=== PATIENT | female | born 1965 | race Caucasian/White ===

== ENCOUNTER 2025-05-05 09:39 | Emergency (ER) | payer SELFPAY ==
[2025-05-05 09:47] VITALS: BMI 25.9
--- NOTE | 2025-05-05 09:59 | ED.GENMED ---
History of Present Illness
<Edward Kidd MD, Resident - Last Filed: 05/05/25 13:24>
General
Chief Complaint: Back Pain
Source: patient
Time Seen by Provider: 05/05/25 09:56
History of Present Illness
History of Present Illness:
Patient is a 59-year-old female with PMH of HTN, diverticulitis, anxiety, and depression who presents to the [facility] ED via EMS for 2 days of mild back pain that acutely worsened this morning. Patient was woken from sleep 2 days ago by sudden
onset, 9/10 intensity back and substernal chest pain that radiates to the shoulders and arms bilaterally. Pain is worse with movement, improved with sitting/standing versus lying down, associated with shortness of breath. Over the past 2 days,
patient has taken Tylenol, naproxen, Aleve, gabapentin, and smoked marijuana for her pain, which provided mild relief. At the bedside, patient continues to have back pain, chest pain, shortness of breath. On transport with EMS, patient was given
aspirin and nitroglycerin, which did provide some relief for symptoms. No association with eating. No trauma. On Thursday night, patient tried a new neck stretch that she does not usually perform. No immediate issues after that stretch, but
patient wonders whether it could be related to her back pain. Denies palpitations, N/V/D, recent illnesses, cough, wheezing, dysuria, frequency, urgency, weakness, or numbness.
Past History
<Edward Kidd MD, Resident - Last Filed: 05/05/25 13:24>
Past History
ED Past Medical History: HTN and Other (Diverticulitis)
ED Past Surgical History: Appendectomy
Social History
Tobacco: Non-smoker
Alcohol: Daily (Wine 1-2 glasses)
Drug: Marijuana
Personal:
Living: with family
Review of Systems
<Edward Kidd MD, Resident - Last Filed: 05/05/25 13:24>
Review of Systems
Respiratory: Reports trouble breathing; Denies cough
Cardiac: Reports chest pain; Denies palpitations or syncope
ABD/GI: Reports abdominal pain; Denies nausea, vomiting or diarrhea
: Denies dysuria, frequency or urgency
Musculoskeletal: Reports back pain ('Between shoulder blades')
Neurological: Denies dizzy, weakness or numbness
Phy Exam
<Edward Kidd MD, Resident - Last Filed: 05/05/25 13:24>
Physical Exam
Physical Exam:
General: NAD. Conversant.
CV: RRR. No M/R/G. S1, S2 noted.
Pulm: CTAB. No wheezes or crackles.
GI: Soft, mild epigastric tenderness. Nondistended. No rigidity, guarding, or rebound tenderness.
MSK: Mild TTP of the paraspinal and spinal areas between the shoulder blades. Pain worse with movement.
Neuro: A&O x 3. Motor, or sensory intact. CN II through XII intact.
Course
<Edward Kidd MD, Resident - Last Filed: 05/05/25 13:24>
Orders/Labs/Results
Orders:
Orders
05/05/25 09:45
Electrocardiogram (*1) Urgent
Reason for Study: Chest Pain
EKG- Treatment ONCE
CXR2 [CR Chest - 2 Views ] Urgent
Comment:
Reason For Exam: chest pain
05/05/25 09:56
Complete Blood Count/With Diff Urgent
Comprehensive Metabolic Panel Urgent
Lipase Urgent
Troponin I Urgent
05/05/25 11:10
Add On- LAB Urgent
Tests Added?: lipase
US Abdomen Complete/Upper Urgent
Comment:
Reason For Exam: epigastric pain
05/05/25 11:11
HYDROmorphone [Dilaudid] 0.5 mg IV NOW STA
05/05/25 11:12
Lactated Ringers [Lr] 500 ml IV BOLUS
05/05/25 12:59
Dexamethasone Pf [Decadron] 10 mg PO NOW STA
Ketorolac [Toradol] 15 mg IV NOW STA
Abnormal Lab Results
05/05/25
09:56
WBC 14.1 H 10^3/uL
(4.8-10.8)
RBC 4.15 L 10^6/uL
(4.20-5.40)
Abs Immat Gran (auto) 0.1 H 10^3/uL
(0-0.05)
Absolute Neuts (auto) 11.9 H 10^3/uL
(1.4-6.5)
Absolute Lymphs (auto) 1.0 L 10^3/uL
(1.2-3.4)
Absolute Monos (auto) 0.9 H 10^3/uL
(0.1-0.6)
Neutrophils % 84.5 H %
(42.2-75.2)
Lymphocytes % 7.3 L %
(20.5-51.1)
Glucose 103 H mg/dl
(70-99)
AST 61 H U/L
(14-36)
ALT 38 H U/L
(0-35)
05/05/25 09:56
05/05/25 09:56
Vital Signs
Initial and Last Documented VS:
Initial Vital Signs
Temp Pulse Resp Pulse Ox
98.0 F 99 16 99
05/05/25 09:47 05/05/25 09:47 05/05/25 09:47 05/05/25 09:47
Last Documented Vital Signs
Temp Pulse Resp Pulse Ox
98.4 F 99 16 98
05/05/25 09:47 05/05/25 09:47 05/05/25 09:47 05/05/25 10:39
<Jakob Mitchell MD - Last Filed: 05/05/25 13:12>
Orders/Labs/Results
Orders:
Orders
05/05/25 09:45
Electrocardiogram (*1) Urgent
Reason for Study: Chest Pain
EKG- Treatment ONCE
CXR2 [CR Chest - 2 Views ] Urgent
Comment:
Reason For Exam: chest pain
05/05/25 09:56
Complete Blood Count/With Diff Urgent
Comprehensive Metabolic Panel Urgent
Lipase Urgent
Troponin I Urgent
05/05/25 11:10
Add On- LAB Urgent
Tests Added?: lipase
US Abdomen Complete/Upper Urgent
Comment:
Reason For Exam: epigastric pain
05/05/25 11:11
HYDROmorphone [Dilaudid] 0.5 mg IV NOW STA
05/05/25 11:12
Lactated Ringers [Lr] 500 ml IV BOLUS
05/05/25 12:59
Dexamethasone Pf [Decadron] 10 mg PO NOW STA
Ketorolac [Toradol] 15 mg IV NOW STA
Abnormal Lab Results
05/05/25
09:56
WBC 14.1 H 10^3/uL
(4.8-10.8)
RBC 4.15 L 10^6/uL
(4.20-5.40)
Abs Immat Gran (auto) 0.1 H 10^3/uL
(0-0.05)
Absolute Neuts (auto) 11.9 H 10^3/uL
(1.4-6.5)
Absolute Lymphs (auto) 1.0 L 10^3/uL
(1.2-3.4)
Absolute Monos (auto) 0.9 H 10^3/uL
(0.1-0.6)
Neutrophils % 84.5 H %
(42.2-75.2)
Lymphocytes % 7.3 L %
(20.5-51.1)
Glucose 103 H mg/dl
(70-99)
AST 61 H U/L
(14-36)
ALT 38 H U/L
(0-35)
05/05/25 09:56
05/05/25 09:56
Vital Signs
Initial and Last Documented VS:
Initial Vital Signs
Temp Pulse Resp Pulse Ox
98.0 F 99 16 99
05/05/25 09:47 05/05/25 09:47 05/05/25 09:47 05/05/25 09:47
Last Documented Vital Signs
Temp Pulse Resp Pulse Ox
98.4 F 99 16 98
05/05/25 09:47 05/05/25 09:47 05/05/25 09:47 05/05/25 10:39
<Edward Kidd MD, Resident - Last Filed: 05/05/25 13:24>
MDM/Problems Addressed
Differential Diagnosis Includes:
Muscle strain
Myocardial infarction
Aortic dissection
Pancreatitis
GI ulcer
Pericarditis
Pneumonia
Fracture
Pneumothorax
MDM/Problems Addressed:
Assessment: Patient is a 59-year-old female with PMH of HTN, diverticulitis, anxiety, and depression who presents to the [facility] ED with shortness of breath and sudden onset, 9/10 intensity, back and substernal chest pain that radiates to the
shoulder blades and arms and is worse with movement and upright positioning. Physical exam remarkable only for mild epigastric tenderness. AFVSS, EKG, CXR, abdominal ultrasound unremarkable. Labs remarkable for leukocytosis (14.1), neutrophilia,
left shift, and previously present mild transaminase elevations. Troponin, lipase unremarkable. Patient is feeling better with pain control. Suspect musculoskeletal etiology of back pain. Workup ongoing.
Plan:
#Back pain
EKG
Labs: CBC, CMP, lipase, troponin
Imaging: Abdominal ultrasound, CXR
Pain control with Dilaudid, Toradol
Decadron for muscle pain
<Edward Kidd MD, Resident - Last Filed: 05/05/25 13:24>
*Pulse Oximetry
SaO2: 98
Oxygen Mode of Delivery: Room air
Patient hypoxic: no
*Critical Care Note
Total Time (30-74mins, 75-104mins- exclusive of procedures): Not Applicable
ED Attending Note
<Edward Kidd MD, Resident - Last Filed: 05/05/25 13:24>
-
Portions of this chart may have been created with voice recognition software.� Occasional wrong word or��sound alike� substitutions may have occurred due to the inherent limitations of voice recognition software.
<Jakob Mitchell MD - Last Filed: 05/05/25 13:12>
ED Attending Note
Patient seen and examined by attending physician: Yes
ED Attending Note:
Patient presents to ED secondary to 3-day history of persistent upper back pain. Patient reports doing different type of stretching exercise, requiring extreme flexion of her neck, the night before she went to sleep. She woke up the following day,
earlier than usual, with aforementioned upper back pain, which has persisted. Denies chest pain. Denies shortness of breath. Denies nausea or vomiting. Denies dizziness. Denies diaphoresis. Pain worse with certain movements. Denies weakness
or numbness. Denies difficulty with ambulation. Denies direct trauma. Denies recent illness. Denies previous history of similar symptoms. Patient initially thought her pain was musculoskeletal in etiology, but when it persisted beyond 2 days,
along with chest pain, she thought that she should get herself checked out. Denies family history of early heart disease. Denies smoking or drinking alcohol. Denies recent travel or surgery. Denies of leg pain or swelling.
Physical Exam
General: mild painful distress, not acutely ill. afebrile
Head: nc/at. eomi
Neck: supple. no meningeal signs. no midline tenderness. mild left cervical tenderness at level of C-5-6, without deformity/swelling/ecchymosis
Heart: s1/s2 regular rate and rhythm
Lungs: no acute respiratory distress. clear bilaterally. mild upper anterior chest wall tenderness to palpation
Abdomen: normal bowel sounds. not tender. no distention
Neuro: alert and oriented x 3. no focal neurological deficits
Skin: no rash
Psychiatric: well kept. interactive and cooperative
Extremities: no edema. no calf tenderness.
Patient with an unremarkable workup in ED, including blood work and abdominal ultrasound. Mildly elevated AST/ALT noted, which appears to be chronic.
History and exam consistent with likely musculoskeletal pain with associated muscle spasm. Patient otherwise is afebrile, hemodynamically stable, and neurologically intact, at time of discharge, to the care of her friend. Advised Tylenol/Motrin
for pain relief, along with warm compress application, as well as PCP follow-up as an outpatient, including potential MRI of cervical spine, if symptoms persist. Return precautions provided to the patient, i.e. fever/worsening
pain/weakness/numbness. Patient expressed understanding at time of discharge.
Discharge Plan
Departure
Patient Disposition: Home (Routine Discharge)
Date of Disposition: 05/05/25
Time of Disposition: 13:10
Patient with high blood pressure during this ER visit?: No
Condition: Good
Covid-19: Not Applicable
Discharge Problem:
Musculoskeletal back pain
Instructions: Upper Back Pain (DC)
Prescriptions:
No Action
trazodone 50 MG tablet
50 mg PO HS
ibuprofen 800 MG tablet
800 mg PO Q6HPRN PRN (Reason: pain)
Vyvanse 40 MG capsule
40 mg PO DAILY
duloxetine 40 MG capsule,delayed release(DR/EC)
40 mg PO DAILY
dextroamphetamine-amphetamine [Adderall] 10 mg Tablet
10 mg PO DAILY@1600
losartan
1 tab PO HS
Referrals:
UNKNOWN - PT DOES,NOT KNOW [Family Provider]
Activity Restrictions/Additional Instructions:
Recommend follow-up with PCP for reevaluation of back pain, with possible consideration of MRI
Return to ED if worsening back pain, chest pain, shortness of breath or any other acute symptoms
Interventions
Interventions:
*Risk Screen - Suicide Last Done: 05/05/25 09:47
*General Assessment Last Done: 05/05/25 09:47
*Neglect/Abuse Screening Last Done: 05/05/25 10:15
*ED- Fall Risk Assessment Last Done: 05/05/25 09:47
*ED COVID-19 Vaccine History Last Done: 05/05/25 09:51
*ED Influenza Vaccine History Last Done: 05/05/25 09:51
ED-Musculoskeletal Assessment Last Done: 05/05/25 09:47
Discharge Date and Time
Print Language: GEORGIAN
[2025-05-05 10:12] LABS: Hematocrit 38.8 % (37.0-47.0); Hemoglobin 12.8 g/dL (12.0-16.0); Mean Corp Hgb Conc. 33.0 g/dL (33.0-37.0); Mean Corpuscular Volume 93.5 fL (81.0-99.0); Nucleated Red Blood Cells % 0 %; Platelet Count 194 10^3/uL (130-400); Red Cell Dist. Width 12.4 % (11.5-14.5)
[2025-05-05 10:25] LABS: ALT (SGPT) 38 U/L (0-35); AST (SGOT) 61 U/L (14-36); Albumin 3.8 g/dl (3.5-5.0); Alkaline Phosphatase 108 U/L (38-126); Blood Urea Nitrogen 11 mg/dl (7-17); Calcium 8.8 mg/dl (8.4-10.2); Carbon Dioxide 27 mmol/L (22-30); Chloride 103 mmol/L (98-107); Estimated Creatinine Clearance 75 ml/min; Glucose 103 mg/dl (70-99); Potassium 4.4 mmol/L (3.5-5.1); Sodium 135 mmol/L (135-145); Total Protein 6.4 g/dl (6.3-8.2); eGFR > 60.00
[2025-05-05 10:37] LABS: Troponin I < 0.012 ng/ml
[2025-05-05] MEDS: LR 500 IV (11:17)
[2025-05-05] MEDS: DILAUDID 0.5 MG IV (11:18)
[2025-05-05 12:11] LABS: Lipase 141 U/L (23-300)
[2025-05-05] MEDS: TORADOL 15 MG IV (13:19)
[2025-05-05] MEDS: DECADRON 10 MG PO (13:19)
== END 2025-05-05 13:34 | disposition home or self-care (01) ==
LOC: EMR 09:39
PROVIDERS: EMERGENCY PHYSICIAN Emergency Medicine
DX: M54.9 Dorsalgia, unspecified (principal); I10 Essential (primary) hypertension; F41.8 Other specified anxiety disorders; Z90.49 Acquired absence of other specified parts of digestive tract
CPT/HCPCS: 99284; 71046; 76700; 80053; 83690; 84484; 85025; 93005